=== PATIENT | female | born 1985 | race Hispanic/Latino ===

== ENCOUNTER 2019-01-22 15:21 | Outpatient (CLI) | payer OTHER ==
[2019-01-22] MEDS ORDERED: LACTATED RINGERS 500 ML IV ONE (15:56)
[2019-01-22 16:46] LABS: Bilirubin,Urine NEG (Negative); Blood,Urine NEG (Negative); Color,Urine Colorless (Yellow); Protein,Urine <15 mg/dL mg/dL (Negative); Urobilinogen,Urine < 2.0 mg/dL (<2.0); WBC,Urine < 1.0 /HPF (0.0-6.0)
[2019-01-22] MEDS ORDERED: DOCUSATE SODIUM 100 MG CAP PO PRN (16:52)
[2019-01-22] MEDS ORDERED: ACETAMINOPHEN 325 MG TAB PO PRN (16:52)
[2019-01-22] MEDS ORDERED: TERBUTALINE 1 MG/1 ML INJ ONE (17:16)
[2019-01-22] MEDS: LACTATED RINGERS 1,000 ML IV SCH ×2 (17:18→19:05)
[2019-01-22] MEDS ORDERED: TERBUTALINE 1 MG/1 ML INJ SUB-Q ONE ×2 (17:45→18:38)
[2019-01-22 18:28] VITALS: BP 114/58
[2019-01-22] MEDS ORDERED: guaiFENesin DM 200/20 MG ORAL LIQD 10 ML PO PRN (19:07)
[2019-01-23] MEDS ORDERED: PRENATAL VIT27-FE FUMARATE-FOLIC ACID VIT TAB PO SCH (10:00)
== END 2019-01-22 20:36 | disposition home or self-care (01) ==
LOC: TRG 15:21
PROVIDERS: ATTEND Obstetrics & Gynecology
DX: O62.9 Abnormality of forces of labor, unspecified (principal); O99.512 Diseases of the respiratory system complicating pregnancy, second trimester; J45.909 Unspecified asthma, uncomplicated; O99.342 Other mental disorders complicating pregnancy, second trimester; F32.9 Major depressive disorder, single episode, unspecified; F41.9 Anxiety disorder, unspecified; Z87.891 Personal history of nicotine dependence; Z3A.26 26 weeks gestation of pregnancy
CPT/HCPCS: 81001; 96360; 96361; 96372; J3105; J7120